=== PATIENT | female | born 2000 ===

== ENCOUNTER 2023-02-17 05:24 | Inpatient (IN) | payer BC ==
[~2023-02-17] VITALS: Ht 170.2 cm; Wt 106.6 kg
[2023-02-17] MEDS ORDERED: HYDR10TA37 PO (05:56)
[2023-02-17] MEDS ORDERED: LAMO150T6 PO (05:56)
[2023-02-17] MEDS ORDERED: CLON0.1T PO (05:56)
[2023-02-17] MEDS ORDERED: CLONIDINE HCL 0.1 MG TABLET ONE (05:58)
[2023-02-17 06:09] LABS: ABG HCO3 21.2 mmol/L (22.0-26.0); ABG PCO2 35.2 mmHg (35.0-48.0); ABG PH 7.397 (7.340-7.440); ABG PO2 79.9 mmHg (75.0-100.0); ABG SITE LEFT RADIAL; AaDO2 95.9 mmHg; COHb 0.2 % (0.0-3.9); MetHb 0.2 % (0.0-1.5); O2Hb 94.7 % (94.0-97.0)
[2023-02-17 07:02] LABS: BASOPHILS % (AUTO) 0.3 % (0.0-2.0); EOSINOPHILS # (AUTO) 0.1 K/uL (0.0-0.7); EOSINOPHILS % (AUTO) 1.2 % (0.0-7.0); HEMATOCRIT 37.2 % (31.2-41.9); HEMOGLOBIN 12.4 g/dL (10.9-14.3); LYMPHOCYTES # (AUTO) 2.6 K/uL (0.8-4.8); LYMPHOCYTES % (AUTO) 31.6 % (20.5-51.5); MEAN CORPUSCULAR HEMOGLOBIN 29.2 uug (24.7-32.8); MEAN CORPUSCULAR HGB CONC 33 g/dL (32.3-35.6); MONOCYTES # (AUTO) 0.5 K/uL (0.1-1.30); MONOCYTES % (AUTO) 6.7 % (0.0-11.0); NEUTROPHILS # (AUTO) 4.9 K/uL (1.8-8.9); NEUTROPHILS % (AUTO) 60.2 % (38.5-71.5); PLATELET COUNT (AUTO) 342 K/uL (179-408); RED BLOOD CELL COUNT(AUTO) 4.23 MIL/uL (3.63-4.92); RED CELL DISTRIBUTION WIDTH 14.1 % (12.3-17.7); WHITE BLOOD COUNT (AUTO) 8.1 K/uL (3.8-11.8)
[2023-02-17 07:05] LABS: DIFFERENTIAL COMMENT 1
[2023-02-17 07:19] LABS: AMMONIA 24 umol/L (11-32); ETHANOL 92 MG/DL (0-10)
[2023-02-17 07:42] LABS: ALANINE AMINOTRANSFERASE 24 U/L (14-59); ALBUMIN 3.5 g/dL (3.4-5.0); ALKALINE PHOSPHATASE 63 U/L (50-136); ASPARTATE AMINOTRANSFERASE 17 U/L (15-37); BILIRUBIN,DIRECT 0.1 mg/dL (0.0-0.2); BILIRUBIN,TOTAL 0.2 mg/dL (0.2-1.0); CALCIUM 8.6 mg/dL (8.5-10.1); CARBON DIOXIDE 22 mmol/L (21-32); CHLORIDE 102 mmol/L (98-107); CREATININE 0.8 mg/dL (0.6-1.3); GLUCOSE 209 mg/dL (74-106); POTASSIUM 3.6 mmol/L (3.5-5.1); SODIUM SERUM 140 mmol/L (136-145); TOTAL PROTEIN, SERUM 7.1 g/dL (6.4-8.2); UREA NITROGEN, BLOOD 8 mg/dL (7-18)
[2023-02-17 07:45] LABS: ACETAMINOPHEN < 2.0 ug/mL (10-30)
[2023-02-17 08:17] LABS: THYROID STIMULATING HORMONE 0.992 mIU/mL (0.358-3.740)
[2023-02-17 09:46] LABS: *BILIRUBIN,URIN NEGATIVE (NEGATIVE); *BLOOD, URINE NEGATIVE (NEGATIVE); *CLARITY,URINE CLEAR (CLEAR); *COLOR,URINE YELLOW (YELLOW); *KETONES,URINE NEGATIVE (NEGATIVE); *PROTEIN,URINE NEGATIVE (NEGATIVE); *UROBILINOGEN,URINE 0.2 E.U./dl (NORMAL); LEUKOCYTE ESTERASE ,URINE NEGATIVE (NEGATIVE); NITRITE, URINE NEGATIVE (NEGATIVE); UGLUCOSE NEGATIVE (NEGATIVE)
[2023-02-17 10:03] LABS: *URINE HCG, QUAL NEGATIVE (NEGATIVE)
[2023-02-17 10:12] LABS: *AMPHETAMINE, URINE NEGATIVE (NEGATIVE); *BARBITURATE, URINE NEGATIVE (NEGATIVE); *BENZODIAZEPINE, URINE NEGATIVE (NEGATIVE); *CANNABINOID, URINE POSITIVE (NEGATIVE); *COCCAINE, URINE NEGATIVE (NEGATIVE); *OPIATE, URINE NEGATIVE (NEGATIVE); *PHENCYCLIDINE SCREEN,URINE NEGATIVE (NEGATIVE)
[2023-02-17 10:28] LABS: FENTANYL, URINE NEGATIVE (NEGATIVE)
[2023-02-17 11:15] LABS: CALCIUM 9.3 mg/dL (8.5-10.1); CREATININE 0.8 mg/dL (0.6-1.3); POTASSIUM 3.5 mmol/L (3.5-5.1)
[2023-02-17 11:21] LABS: ALBUMIN 3.4 g/dL (3.4-5.0); BILIRUBIN,TOTAL 0.3 mg/dL (0.2-1.0)
[2023-02-17] MEDS ORDERED: POTASSIUM CHLORIDE 20 MEQ in IV 1/2NS 1000 ML 1,000 ML IV PRN (16:15)
[2023-02-17] MEDS ORDERED: ACETAMINOPHEN 325 MG TABLET PO PRN (16:15)
[2023-02-17] MEDS ORDERED: ONDANSETRON 4 MG/2 ML VIAL IV PRN (16:15)
[2023-02-17] MEDS ORDERED: hydrALAZINE HCL 25 MG TABLET PO PRN (16:15)
[2023-02-17] MEDS ORDERED: LORAZEPAM 0.5 MG TABLET PO PRN (16:15)
[2023-02-18 09:00] LABS: BASOPHILS % (AUTO) 0.4 % (0.0-2.0); EOSINOPHILS # (AUTO) 0.2 K/uL (0.0-0.7); EOSINOPHILS % (AUTO) 2.4 % (0.0-7.0); HEMATOCRIT 36.7 % (31.2-41.9); HEMOGLOBIN 12.4 g/dL (10.9-14.3); LYMPHOCYTES # (AUTO) 3.5 K/uL (0.8-4.8); LYMPHOCYTES % (AUTO) 34.9 % (20.5-51.5); MEAN CORPUSCULAR HEMOGLOBIN 29.4 uug (24.7-32.8); MEAN CORPUSCULAR HGB CONC 34 g/dL (32.3-35.6); MEAN CORPUSCULAR VOLUME 87.2 fL (75.5-95.3); MONOCYTES # (AUTO) 0.7 K/uL (0.1-1.30); MONOCYTES % (AUTO) 6.6 % (0.0-11.0); NEUTROPHILS # (AUTO) 5.7 K/uL (1.8-8.9); NEUTROPHILS % (AUTO) 55.7 % (38.5-71.5); PLATELET COUNT (AUTO) 299 K/uL (179-408); RED CELL DISTRIBUTION WIDTH 14.3 % (12.3-17.7); WHITE BLOOD COUNT (AUTO) 10.2 K/uL (3.8-11.8)
[2023-02-18] MEDS: LAMOTRIGINE 100 MG TABLET PO SCH (09:00)
[2023-02-18] MEDS: PANTOPRAZOLE SODIUM 40 MG VIAL IV SCH (09:00)
[2023-02-18 09:04] LABS: DIFFERENTIAL COMMENT 1
[2023-02-18 09:18] LABS: ALBUMIN 3.3 g/dL (3.4-5.0); BILIRUBIN,TOTAL 0.5 mg/dL (0.2-1.0); CALCIUM 8.7 mg/dL (8.5-10.1); CREATININE 0.8 mg/dL (0.6-1.3); MAGNESIUM 1.9 mg/dL (1.8-2.4); PHOSPHOROUS 4.1 mg/dL (2.5-4.9); POTASSIUM 3.5 mmol/L (3.5-5.1); TOTAL PROTEIN, SERUM 6.7 g/dL (6.4-8.2)
[2023-02-18] MEDS ORDERED: PANTOPRAZOLE SODIUM 40 MG VIAL ONE (09:42)
[2023-02-18 22:25] VITALS: BP 108/52; TEMP 98; O2SAT 99
[2023-02-18] MEDS ORDERED: IV 1/2 NS + KCL 20 MEQ BAG 1,000 ML ONE (23:06)
[2023-02-19 04:32] VITALS: BP 117/54; TEMP 98
[2023-02-19] MEDS: LAMOTRIGINE 100 MG TABLET PO SCH (08:46)
[2023-02-19] MEDS: PANTOPRAZOLE SODIUM 40 MG VIAL IV SCH (08:46)
[2023-02-19 11:49] VITALS: BP 118/70; TEMP 98; O2SAT 100
[2023-02-19] MEDS ORDERED: LORA0.5T48 PO (12:15)
[2023-02-19] MEDS ORDERED: ACET325T53 PO (12:15)
[2023-02-19] MEDS ORDERED: FAMO10TA41 PO (12:15)
[2023-02-20] MEDS ORDERED: PANTOPRAZOLE SODIUM 40 MG TABLET.DR PO SCH (07:00)
== END 2023-02-19 16:30 | DRG 917 ==
LOC: ER 05:27 → TRANSITION 02-18 01:34 → TELE3 02-18 22:08 → MEDSURG3 02-19 10:30
PROVIDERS: ADMIT Internal Medicine; ATTEND Internal Medicine
DX: T46.5X4A Poisoning by other antihypertensive drugs, undetermined, initial encounter (principal); G92.8 Other toxic encephalopathy; R45.851 Suicidal ideations; F31.81 Bipolar II disorder; I95.2 Hypotension due to drugs; T51.0X4A Toxic effect of ethanol, undetermined, initial encounter; Y92.039 Unspecified place in apartment as the place of occurrence of the external cause; R40.0 Somnolence; R73.9 Hyperglycemia, unspecified; R00.1 Bradycardia, unspecified; J32.4 Chronic pansinusitis; Z91.141 Patient's other noncompliance with medication regimen due to financial hardship; F12.90 Cannabis use, unspecified, uncomplicated
CPT/HCPCS: 36415; 36600; 70450; 71045; 83735; 84100; 84443; 84484; 84703; 85025; 85730; 93005; C9113; G0378; G0480; J3480; J3490